=== PATIENT | male | born 1975 | race Caucasian/White ===

== ENCOUNTER 2019-11-01 17:25 | Emergency (ER) | payer OTHER, SELFPAY ==
--- NOTE | ~2019-11-01 | XR_ITS ---
EXAMINATION: XR finger 1st LT min 2V EXAM DATE: 11/01/2019 17:52 INDICATION: Initial encounter following injury, with pain of the left thumb, laceration. TECHNIQUE: Left first finger frontal, lateral and oblique projections obtained and reviewed. There is no prior study for comparison. FINDINGS: There are no acute fractures or dislocations identified. There is no subcutaneous gas. Ca n't identify the known laceration. There is a bandage over the finger. IMPRESSION: No acute osseous findings. Reviewed, dictated and finalized at location A. IMPRESSION: No acute osseous findings.
--- NOTE | 2019-11-01 17:39 | ED.WOUNDLAC ---
HPI - Wound/Laceration General Chief Complaint: Wound/Laceration <Amberly Angulo PA-C - Last Filed: 11/01/19 18:45> Stated Complaint: LAC L THUMB <NAOMI Bailey Last Filed: 11/01/19 18:45> Time Seen by Provider: 11/01/19 17:29 <NAOMI Bailey Last Filed: 11/01/19 18:45> Source: patient <NAOMI Bailey Last Filed: 11/01/19 18:45> Mode of arrival: ambulatory <NAOMI Bailey Last Filed: 11/01/19 18:45> Limitations: no limitations <NAOMI Bailey Last Filed: 11/01/19 18:45> History of Present Illness HPI narrative: This is a 44 year old male that presents to the ER for laceration to left thumb sustained just prior to arrival. Reports he was doing dishes and cut the finger on a broken glass. Reports bleeding and pain. Denies decreased ROM or numbness. <NAOMI Bailey Last Filed: 11/01/19 18:45> Related Data Allergies/Adverse Reactions: Allergies Allergy/AdvReac Type Severity Reaction Status Date / Time No Known Allergies Allergy Verified 01/14/18 05:42 <NAOMI Bailey Last Filed: 11/01/19 18:45> Review of Systems Review of Systems: Narrative: CONSTITUTIONAL: Denies fever SKIN: Reports laceration MUSCULOSKELETAL: Denies joint pain NEUROLOGIC: Denies numbness <NAOMI Bailey Last Filed: 11/01/19 18:45> All systems reviewed & are unremarkable except as noted in HPI and below <NAOMI Bailey Last Filed: 11/01/19 18:45> PMFSH Social History Social History: Social History Smoking status: Current every day smoker Alcohol intake: never <NAOMI Bailey Last Filed: 11/01/19 18:45> Exam Narrative: Exam Narrative: GENERAL: Well-appearing, well-nourished, and in no acute distress. HEAD: Normocephalic, atraumatic. EYES: EOMI. EXTREMITIES: Normal range of motion. No edema. Left first finger with 2cm flap laceration over the proximal phalanx SKIN: Warm, dry, no rash. NEURO: No focal deficits. Alert and oriented x3. PSYCH: Normal mood and affect <NAOMI Bailey Last Filed: 11/01/19 18:45> Course Vital Signs Vital signs: Vital Signs Temperature 36.7 C 11/01/19 17:40 Pulse Rate 87 11/01/19 17:40 Respiratory Rate 12 11/01/19 17:40 Blood Pressure 130/85 11/01/19 17:40 Pulse Oximetry 100 11/01/19 17:40 Temperature 36.7 C 11/01/19 17:40 Pulse Rate 60 11/01/19 19:00 Respiratory Rate 12 11/01/19 19:00 Blood Pressure 115/70 11/01/19 19:00 Pulse Oximetry 99 11/01/19 19:00 <Amberly Angulo PA-C - Last Filed: 11/01/19 18:45> Vital Signs Temperature 36.7 C 11/01/19 17:40 Pulse Rate 87 11/01/19 17:40 Respiratory Rate 12 11/01/19 17:40 Blood Pressure 130/85 11/01/19 17:40 Pulse Oximetry 100 11/01/19 17:40 Temperature 36.7 C 11/01/19 17:40 Pulse Rate 60 11/01/19 19:00 Respiratory Rate 12 11/01/19 19:00 Blood Pressure 115/70 11/01/19 19:00 Pulse Oximetry 99 11/01/19 19:00 <Mode Roth MD - Last Filed: 11/01/19 21:16> Procedures Laceration Laceration 1: Date: 11/01/19 <NAOMI Bailey Last Filed: 11/01/19 18:45> Time: 18:43 <NAOMI Bailey Last Filed: 11/01/19 18:45> Site: hand <NAOMI Bailey Last Filed: 11/01/19 18:45> Side (If applicable): left <NAOMI Bailey Filed: 11/01/19 18:45> Size (cm): 2 <NAOMI Bailey Last Filed: 11/01/19 18:45> Description: flap <NAOMI Bailey Last Filed: 11/01/19 18:45> Depth: simple, single layer <NAOMI Bailey Last Filed: 11/01/19 18:45> Local Anesthetic: lidocaine 1% <NAOMI Bailey Last Filed: 11/01/19 18:45> Amount of anesthesia used (mL): 2 <NAOMI Bailey Last Filed: 11/01/19 18:45> Pre-repair: irrigated <Amberly Jarvis
[2019-11-01 17:40] VITALS: BP 130/85; PULSE 87; RESP 12; TEMP 36.7; O2SAT 100
[2019-11-01 19:00] VITALS: BP 115/70; PULSE 60; RESP 12; O2SAT 99
== END 2019-11-01 19:00 | disposition home or self-care (01) ==
PROVIDERS: Emergency Provider Emergency Medicine; PCP Family Medicine
DX: S61.012A Laceration without foreign body of left thumb without damage to nail, initial encounter (principal); Y93.G1 Activity, food preparation and clean up; W25.XXXA Contact with sharp glass, initial encounter
CPT/HCPCS: 12001; 73140; 99283

== ENCOUNTER 2019-11-25 13:21 | Emergency (ER) | payer OTHER, SELFPAY ==
[2019-11-25 13:29] VITALS: BP 125/72; PULSE 72; RESP 16; TEMP 37.2; O2SAT 98
--- NOTE | 2019-11-25 13:48 | ED.DENTAL ---
HPI - Dental/Oral General Chief complaint: Dental/Oral Stated complaint: Tooth pain Time Seen by Provider: 11/25/19 13:48 Source: patient Mode of arrival: ambulatory Limitations: no limitations History of Present Illness HPI Narrative: Sae Johnson is a 44 yo male with a PMH of anxiety and smoking who comes to express care with upper mouth pain that feels like behind nostril, running down into teeth x 3 days- worsening Related Data Home Medications Medication Instructions Recorded Confirmed alprazolam 11/25/19 nicotine 11/25/19 Allergies Allergy/AdvReac Type Severity Reaction Status Date / Time No Known Allergies Allergy Verified 01/14/18 05:42 [facility] Family History Family History Other No acute medical problems Social History Social History Smoking status: Current every day smoker Alcohol intake: never Comments At time of signature, I agree with nursing past medical, surgical, social and family history. There is no relevant family history pertinent to the presenting complaint. Exam Narrative: Exam Narrative: GENERAL: This is a well-nourished, well-developed patient, in mild distress. HEAD: normocephalic, atraumatic. EYES: Sclera clear/white. Vision is grossly intact. EARS: External ears normal, . Hearing grossly intact. NOSE: External nose normal without nasal discharge, nares without redness, no rhinorrhea. THROAT: Mucous membranes moist, NECK: Neck supple, non-tender CARDIOVASCULAR: Regular rate and rhythm without murmurs, gallops, or rubs. RESPIRATORY: Clear to auscultation. Breath sounds equal bilaterally. No wheezes, rales, or rhonchi. GASTROINTESTINAL: Abdomen soft, non-tender, SKIN: warm, intact with no suspicious lesions or rash, good texture and turgor. NEURO: awake, alert, and oriented to person, place and time. There were no obvious focal neurologic abnormalities. Steady gait EXTREMITIES: Normal range of motion. Multiple caps on teeth complaining of frontal pain above On tooth 8 BACK: Nontender without deformity Course Course Emergency Course: Started on penicillin VK 4 times daily x10 days Follow-up with dentist Vital Signs Vital signs: Vital Signs Temperature 99.0 F 11/25/19 13:29 Pulse Rate 72 11/25/19 13:29 Respiratory Rate 16 11/25/19 13:29 Blood Pressure 125/72 11/25/19 13:29 Pulse Oximetry 98 11/25/19 13:29 Temperature 99.0 F 11/25/19 13:29 Pulse Rate 72 11/25/19 13:29 Respiratory Rate 16 11/25/19 13:29 Blood Pressure 125/72 11/25/19 13:29 Pulse Oximetry 98 11/25/19 13:29 MDM - Dental/Oral Differential Diagnosis Differential diagnosis: Likely gingival abscess, dental caries, toothache, dental abscess and other Discharge Plan Discharge Clinical Impression: Dental abscess Patient Disposition: Home, Self-Care Condition: Stable Instructions: Antibiotic Form, Dental Abscess (ED) Prescriptions: New penicillin V potassium 500 mg tablet 500 mg PO Q6H 10 Days Qty: 40 RF: 0 No Action alprazolam 0.5 mg tablet RF: 0 nicotine 21 mg/24 hr patch 24 hour RF: 0 Follow-up/Referrals: Guzmán,Lynn Turner MD [Primary Care Provider] - Stand Alone Forms: Work/School Release IP Time of Disposition: 13:57 Discharge Date/Time: 11/25/19 14:05
== END 2019-11-25 14:05 | disposition home or self-care (01) ==
PROVIDERS: Emergency Provider Nurse Practitioner; PCP Family Medicine
DX: K04.7 Periapical abscess without sinus (principal); F41.9 Anxiety disorder, unspecified; F17.210 Nicotine dependence, cigarettes, uncomplicated
CPT/HCPCS: 99213; G0463

== ENCOUNTER 2020-01-10 15:13 | Emergency (ER) | payer OTHER, SELFPAY ==
[2020-01-10 15:22] VITALS: BP 119/77; PULSE 66; RESP 16; TEMP 36.5; O2SAT 100
--- NOTE | 2020-01-10 15:33 | ED.DENTAL ---
HPI - Dental/Oral General Chief complaint: Dental/Oral Stated complaint: Toothache Time Seen by Provider: 01/10/20 15:33 Source: patient and RN notes reviewed Mode of arrival: ambulatory Limitations: no limitations History of Present Illness HPI Narrative: This is a 44 years old male presented office for evaluation of dental pain for two days. The affect teeth are brothersome with eating; concerns for infection. He has similar issue with these teeth in the past; contribute to cavities/crown issue. He could not see his dentist because he stops accepting his medical card. Denies recent trauma/injury to his teeth. Related Data Home Medications Medication Instructions Recorded Confirmed alprazolam 0.5 mg TID PRN 11/25/19 01/10/20 nicotine 1 patch DAILY 11/25/19 01/10/20 ibuprofen 600 mg TID PRN 01/10/20 01/10/20 Allergies Allergy/AdvReac Type Severity Reaction Status Date / Time No Known Allergies Allergy Verified 01/10/20 15:25 Review of Systems Review of Systems: Narrative: CONSTITUTIONAL: Denies fever ENT: Denies difficulty swallowing or opening his jaw CARDIOVASCULAR: Denies chest pain RESPIRATORY: Denies dyspnea GASTROINTESTINAL: Denies abdominal pain, nausea, vomiting SKIN: Denies rash MUSCULOSKELETAL: Denies acute back pain NEUROLOGIC: Denies lightheaded All other systems reviewed are negative, except as documented in HPI. [facility] Family History Family History Other No acute medical problems Social History Social History Smoking status: Current every day smoker Alcohol intake: never Gender identity (if verbalized by the patient): Male Comments At time of signature, I agree with nursing past medical, surgical, social and family history. There is no relevant family history pertinent to the presenting complaint. Exam Narrative: Exam Narrative: GENERAL: This is a well-nourished, well-developed patient, in no apparent distress. EYES: Sclera and conjunctivae normal ENT: External ears normal. Nose and lips normal. Airway patent.The teeth in question are very carious and the gum is swollen and tender around it. There is no facial swelling, cervical or submandibular lymphadenopathy. The patient appears uncomfortable and in pain. CARDIOVASCULAR: Regular rate and rhythm without murmurs, gallops, or rubs. RESPIRATORY: Clear to auscultation. Breath sounds equal bilaterally. No wheezes, rales, or rhonchi. GASTROINTESTINAL: Abdomen soft, non-tender, nondistended. Bowel sounds are active. No hepato-splenomegaly, or palpable masses. No guarding. NEURO: awake, alert, and oriented to person, place and time. There were no obvious focal neurologic abnormalities. Course Vital Signs Vital signs: Vital Signs Temperature 97.7 F 01/10/20 15:22 Pulse Rate 66 01/10/20 15:22 Respiratory Rate 16 01/10/20 15:22 Blood Pressure 119/77 01/10/20 15:22 Pulse Oximetry 100 01/10/20 15:22 Temperature 97.7 F 01/10/20 15:22 Pulse Rate 66 01/10/20 15:22 Respiratory Rate 16 01/10/20 15:22 Blood Pressure 119/77 01/10/20 15:22 Pulse Oximetry 100 01/10/20 15:22 MDM - Dental/Oral MDM Narrative Medical decision making narrative: Discharge instructions reviewed with patient, as well as provided in writing per nursing staff. The instructions also include specific and strict return/GO TO THE ER as well as f/u information. All questions have been answered, and the patient deny any further questions with discharge and discharge plan. Differential Diagnosis Differential diagnosis: Likely gingival abscess, dental caries, toothache, dental abscess, fracture of tooth and aphthous ulcer Critical Care Time Critical Care Time Critical Care Time: No Discharge Plan Discharge Clinical Impression: Gingivitis, Dental caries Patient Disposition: Home, Self-Care Condition: Stable I
== END 2020-01-10 15:42 | disposition home or self-care (01) ==
PROVIDERS: Emergency Provider Nurse Practitioner; PCP Family Medicine
DX: K05.10 Chronic gingivitis, plaque induced (principal); K02.9 Dental caries, unspecified; F17.200 Nicotine dependence, unspecified, uncomplicated; F41.9 Anxiety disorder, unspecified
CPT/HCPCS: 99213; G0463

== ENCOUNTER 2020-08-14 21:48 | Emergency (ER) | payer OTHER, SELFPAY ==
[2020-08-14 21:51] VITALS: BP 149/67; PULSE 97; RESP 18; TEMP 36.8; O2SAT 99
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
[2020-08-14] MEDS: TETRACAINE HCL 0.5% OPHTH SOLN 4 ML BTL 1 DROP EACH EYE (22:42)
[2020-08-14] MEDS: FLUORESCEIN SOD 1 MG/STRIP EACH EYE (22:43)
[2020-08-14] MEDS: SILVER SULFADIAZINE 1% CR 400 GM JAR (*BKC) 1 APPLIC TOPICAL (22:43)
[2020-08-14] MEDS: POLYMYXIN/TRIMETHOPRIM OPHTH 10 ML DROPS 1 DROP LEFT EYE (23:43)
== END 2020-08-14 23:40 | disposition home or self-care (01) ==
PROVIDERS: Emergency Provider Emergency Medicine; PCP Family Medicine
DX: T24.212A Burn of second degree of left thigh, initial encounter (principal); T20.10XA Burn of first degree of head, face, and neck, unspecified site, initial encounter; S05.02XA Injury of conjunctiva and corneal abrasion without foreign body, left eye, initial encounter; X12.XXXA Contact with other hot fluids, initial encounter; F17.210 Nicotine dependence, cigarettes, uncomplicated
CPT/HCPCS: 99283; A9270

== ENCOUNTER 2021-02-08 13:46 | Outpatient (CLI) | payer OTHER, SELFPAY ==
--- NOTE | ~2021-02-08 | MR_ITS ---
EXAMINATION: MR knee LT wo con DATE: 02/08/2021 15:08 INDICATION: Left knee pain. TECHNIQUE: Magnetic resonance imaging (MRI) of the left knee was performed without intravenous contra st. Sequences included axial PD-weighted FS FSE, coronal PD-weighted FSE and PD-weighted FS FSE, sagi ttal PD-weighted FSE, and sagittal T2-weighted FS FSE. COMPARISON: Left knee radiographs 02/03/2021 FINDINGS: Medial compartment: There is a complex tear involving body and posterior horn of medial meniscus. There is full-thickness cartilage loss of femoral condyle involving the central articular surface with intra-articular osteo phyte and mild subchondral edema-like marrow signal intensity. There is cartilage surface regularity of tibial condyle. Marginal osteophytes are noted. Lateral compartment: Lateral meniscus is normal. There is shallow partial-thickness cartilage loss of tibial condyle invol ving the posterior articular surface. There is shallow partial-thickness cartilage loss of femoral co ndyle involving the posterior articular surface with mild subchondral edema-like marrow signal intens ity. Marginal osteophytes are noted. Patellofemoral compartment: There is deep cartilage fissuring of patellar medial facet with mild subchondral edema-like marrow si gnal intensity. There is deep partial thickness cartilage loss of medial trochlea. Ligaments and tendons: The anterior and posterior cruciate ligaments are normal. There are changes of prior sprains of media l collateral ligament and fibular collateral ligament characterized by thickening and increased signa l intensity proximally. There is mild patellar tendinopathy. Fluid: There is a moderate-sized knee joint effusion. There is trace fluid in a Ramirez's cyst. There is mild superficial infrapatellar bursitis. IMPRESSION: 1. Severe chondrosis of medial compartment, moderate chondrosis of patellofemoral compartment, and mi ld chondrosis of lateral compartment. 2. Tear of medial meniscus. 3. Moderate-sized knee joint effusion. Reviewed, dictated and finalized at location A. IMPRESSION: 1. Severe chondrosis of medial compartment, moderate chondrosis of patellofemor al compartment, and mild chondrosis of lateral compartment. 2. Tear of medial meniscus. 3. Moderate-sized knee joint effusion.
== END 2021-02-08 13:47 | disposition home or self-care (01) ==
PROVIDERS: PCP Family Medicine; Visit Provider Nurse Practitioner Family
DX: M25.462 Effusion, left knee (principal); S83.242A Other tear of medial meniscus, current injury, left knee, initial encounter; X58.XXXA Exposure to other specified factors, initial encounter
CPT/HCPCS: 73721